=== PATIENT | female | born 1940 | race Two or more races ===

== ENCOUNTER 2018-01-13 20:29 | Emergency (ER) | payer OTHER ==
[~2018-01-13] VITALS: Ht 154.9 cm; Wt 61.2 kg
[~2018-01-13 20:29] MED LIST: CEFADROXIL500 MG PO; CLEOCIN HCL300 MG PO; LOTRISONE CREAM45 GM TP
== END 2018-01-13 23:21 | disposition home or self-care (01) ==
LOC: ER 20:29
DX: S42.252A Displaced fracture of greater tuberosity of left humerus, initial encounter for closed fracture (principal); S42.212A Unspecified displaced fracture of surgical neck of left humerus, initial encounter for closed fracture; S80.02XA Contusion of left knee, initial encounter; S79.812A Other specified injuries of left hip, initial encounter; S59.812A Other specified injuries left forearm, initial encounter; M12.512 Traumatic arthropathy, left shoulder; W17.89XA Other fall from one level to another, initial encounter; Y93.89 Activity, other specified; Y92.038 Other place in apartment as the place of occurrence of the external cause; Y99.8 Other external cause status

== ENCOUNTER 2018-02-07 11:14 | Outpatient (CLI) | payer OTHER | END 2018-02-07 11:19 | disposition home or self-care (01) | LOC: TOM 11:14 | DX: M25.512 Pain in left shoulder (principal) ==

== ENCOUNTER 2018-02-13 15:40 | Outpatient (CLI) | payer OTHER | END 2018-02-13 15:55 | disposition home or self-care (01) | LOC: RAD 501 15:40 | DX: M25.572 Pain in left ankle and joints of left foot (principal) ==

== ENCOUNTER 2018-08-14 09:23 | Outpatient (CLI) | payer OTHER ==
[~2018-08-14] VITALS: Ht 154.9 cm; Wt 61.2 kg
== END 2018-08-14 09:40 | disposition home or self-care (01) ==
LOC: OFIC 805 09:23
DX: J37.0 Chronic laryngitis (principal); H66.92 Otitis media, unspecified, left ear; J30.89 Other allergic rhinitis

== ENCOUNTER 2018-10-04 10:02 | Outpatient (CLI) | payer OTHER | END 2018-10-04 10:23 | disposition home or self-care (01) | LOC: SONOGRAMA 10:02 → MAMO-SONO 10:15 → SONOGRAMA 10:23 | DX: M75.102 Unspecified rotator cuff tear or rupture of left shoulder, not specified as traumatic (principal); N60.11 Diffuse cystic mastopathy of right breast; N60.12 Diffuse cystic mastopathy of left breast ==

== ENCOUNTER 2019-04-11 11:15 | Outpatient (CLI) | payer OTHER | END 2019-04-11 11:32 | disposition home or self-care (01) | LOC: NUCLEAR 11:15 | DX: I87.2 Venous insufficiency (chronic) (peripheral) (principal); I83.892 Varicose veins of left lower extremity with other complications; I82.402 Acute embolism and thrombosis of unspecified deep veins of left lower extremity ==

== ENCOUNTER 2021-01-01 12:03 | Outpatient (CLI) | payer OTHER | END 2021-01-01 18:42 | disposition home or self-care (01) | LOC: MAMO-SONO 12:03 | PROVIDERS: ATTEND Obstetrics & Gynecology Maternal & Fetal Medicine | DX: N63.21 Unspecified lump in the left breast, upper outer quadrant (principal); Z12.31 Encounter for screening mammogram for malignant neoplasm of breast; N64.4 Mastodynia; N60.11 Diffuse cystic mastopathy of right breast ==

== ENCOUNTER 2023-05-26 13:50 | Outpatient (CLI) | payer OTHER | END 2023-05-26 13:55 | disposition home or self-care (01) | LOC: RAD 13:50 | PROVIDERS: ATTEND Physical Medicine & Rehabilitation | DX: M25.572 Pain in left ankle and joints of left foot (principal) ==

== ENCOUNTER 2025-04-11 23:50 | Emergency (ER) | payer OTHER ==
[~2025-04-11] VITALS: Ht 152.4 cm; Wt 56.7 kg
== END 2025-04-12 12:24 | disposition designated cancer center or children's hospital (05) ==
LOC: ER 23:50
DX: S72.012A Unspecified intracapsular fracture of left femur, initial encounter for closed fracture (principal); W18.39XA Other fall on same level, initial encounter; Y93.89 Activity, other specified; Y92.018 Other place in single-family (private) house as the place of occurrence of the external cause; Z88.2 Allergy status to sulfonamides

== ENCOUNTER 2025-05-30 11:41 | Outpatient (CLI) | payer OTHER | END 2025-05-30 11:44 | disposition home or self-care (01) | LOC: RAD 11:41 | DX: M16.12 Unilateral primary osteoarthritis, left hip (principal) ==